=== PATIENT | male | born 1980 | race Two or more races ===

== ENCOUNTER 2018-01-14 11:01 | Emergency (ER) | payer SELFPAY ==
[~2018-01-14] VITALS: Ht 177.8 cm; Wt 62.9 kg
[2018-01-14] MEDS ORDERED: SODIUM CHLORIDE 0.9% 1,000 ML IV ONE (12:01)
[2018-01-14] MEDS ORDERED: ZIPRASIDONE 20 MG INJ IM ONE ×2 (12:19→12:30)
[2018-01-14] MEDS ORDERED: MAALOX/HYOSCYAMINE/LIDOCAINE 45 ML BTL ONE (12:19)
[2018-01-14] MEDS ORDERED: ONDANSETRON ODT 4 MG ONE (12:19)
[2018-01-14] MEDS ORDERED: SODIUM CHLORIDE FLUSH 10ML SYR IVF ONE (12:30)
[2018-01-14] MEDS ORDERED: SODIUM CHLORIDE 0.9% 1,000ML IVBOLUS ONE (12:30)
[2018-01-14] MEDS ORDERED: ONDANSETRON ODT 4 MG PO ONE (12:30)
[2018-01-14] MEDS ORDERED: CAPSAICIN CRM 0.075%, 60GM TP ONE (12:30)
[2018-01-14] MEDS ORDERED: MAALOX/HYOSCYAMINE/LIDOCAINE 45 ML BTL PO ONE (12:30)
[2018-01-14] MEDS ORDERED: CAPSAICIN CRM 0.025%, 60GM TP ONE (13:30)
[2018-01-14 13:35] VITALS: BP 123/78
== END 2018-01-14 13:43 ==
LOC: ED 13:40 → EDUNIT# 13:40 → ED 13:43
DX: R10.12 Left upper quadrant pain (principal)
CPT/HCPCS: 36415; 80053; 85025; 96360; 96361; 96372; 99285; J3486; J7030; Q0162

== ENCOUNTER 2018-01-14 13:36 | Emergency (ER) | payer SELFPAY ==
[~2018-01-14] VITALS: Ht 177.8 cm; Wt 62.9 kg
[2018-01-14] MEDS ORDERED: SODIUM CHLORIDE 0.9% 1,000 ML IV ONE (14:31)
[2018-01-14] MEDS ORDERED: SODIUM CHLORIDE 0.9% 1,000ML IVBOLUS ONE (15:00)
[2018-01-14] MEDS ORDERED: SODIUM CHLORIDE FLUSH 10ML SYR IVF ONE (15:00)
[2018-01-14] MEDS ORDERED: PLEASE ENTER ALLERGIES MC SCH (15:00)
[2018-01-14] MEDS ORDERED: ZIPRASIDONE 20 MG INJ IM ONE (15:00)
[2018-01-14] MEDS ORDERED: ONDANSETRON ODT 4 MG PO ONE (15:00)
[2018-01-14] MEDS ORDERED: MAALOX/HYOSCYAMINE/LIDOCAINE 45 ML BTL PO ONE ×2 (15:00)
[2018-01-14] MEDS ORDERED: CAPSAICIN CRM 0.075%, 60GM TP ONE (15:00)
[2018-01-14 15:41] LABS: MICROSCOPIC NOT IND
[2018-01-14 15:42] VITALS: BP 122/70
[2018-01-14 15:42] LABS: ALANINE AMINOTRANSFERASE 23 U/L (12-78); ALKALINE PHOSPHATASE 75 U/L (45-117); ANION GAP 11 mmol/L (5-15); BILIRUBIN,TOTAL 0.5 mg/dL (0.2-1.0); CALCIUM 9.4 mg/dL (8.5-10.1); CHLORIDE 111 mmol/L (98-107); CREATININE 1.01 mg/dL (0.7-1.3)
[2018-01-14 15:43] LABS: ALBUMIN 4.7 g/dL (3.4-5.0); TOTAL PROTEIN 8.3 g/dL (6.4-8.2)
[2018-01-14 15:44] LABS: CULTURE INDICATED? NO
[2018-01-14 15:45] LABS: BASOPHILS % (AUTO) 1 % (0-1); EOSINOPHILS % (AUTO) 0 % (1-7); LYMPHOCYTES # (AUTO) 1.46 x10^3/uL (1-3.4); LYMPHOCYTES % (AUTO) 12 % (22-44); MEAN CORPUSCULAR HEMOGLOBIN 31.5 pg (27.5-34.5); MEAN CORPUSCULAR HGB CONC 34.3 g/dL (33.2-36.2); MEAN CORPUSCULAR VOLUME 91.7 fL (81-97); MEAN PLATELET VOLUME 8.9 fL (7.4-10.4); MONOCYTES # (AUTO) 0.72 x10^3/uL (0.2-0.8); MONOCYTES % (AUTO) 6 % (2-9); NEUTROPHILS # (AUTO) 10.19 x10^3/uL (1.8-6.8); NEUTROPHILS % (AUTO) 82 % (42-75); PLATELET COUNT 321 x10^3/uL (130-400); RED BLOOD COUNT 5.26 x10^6/uL (4.38-5.82); RED CELL DISTRIBUTION WIDTH 13.4 % (9.4-14.8)
[2018-01-14 15:46] LABS: BASOPHILS # (AUTO) 0.07 x10^3/uL (0-0.1); EOSINOPHILS # (AUTO) 0.01 x10^3/uL (0-0.4); MD NO
== END 2018-01-14 15:37 | disposition home or self-care (01) ==
LOC: ED 15:02
DX: G43.A1 Cyclical vomiting, in migraine, intractable (principal)
CPT/HCPCS: 36415; 74021; 80053; 81003; 83690; 85025; 96360; 96361; 96372; 99285; J3486; J7030; Q0162

== ENCOUNTER 2021-04-10 11:19 | Emergency (ER) | payer SELFPAY ==
[~2021-04-10] VITALS: Ht 177.8 cm; Wt 68.0 kg
--- NOTE | 2021-04-10 11:23 | NUR ---
PT BROUGHT IN BY [facility]BI WITH CHIEF COMPLAINT OF ABD PAIN STARTING THIS AM AT 6AM. [facility] ADMINISTERED 12.5 PHENERGEN & 2 MG MORPHINE
[2021-04-10] MEDS ORDERED: KETAMINE 10 MG/ML, 20ML IV ONE (11:25)
[2021-04-10] MEDS ORDERED: ONDANSETRON 2MG/ML, 2ML IVPush ONE (11:30)
[2021-04-10] MEDS ORDERED: SODIUM CHLORIDE 0.9% 1,000ML IVBOLUS ONE (11:30)
[2021-04-10] MEDS ORDERED: SODIUM CHLORIDE FLUSH 10ML SYR IVF ONE (11:30)
[2021-04-10] MEDS ORDERED: ONDANSETRON 2MG/ML, 2ML ONE (11:33)
[2021-04-10] MEDS ORDERED: KETAMINE 10 MG/ML, 20ML ONE (11:33)
--- NOTE | 2021-04-10 11:41 | NUR ---
PT MEDICATED PER DEC. BREAK RN UPDATED.
[2021-04-10 11:51] LABS: BASOPHILS % (AUTO) 0 % (0-1); EOSINOPHILS % (AUTO) 0 % (1-7); LYMPHOCYTES % (AUTO) 8 % (22-44); MEAN CORPUSCULAR HEMOGLOBIN 31.3 pg (27.5-34.5); MEAN CORPUSCULAR HGB CONC 34.2 g/dL (33.2-36.2); MEAN PLATELET VOLUME 9.3 fL (7.4-10.4); MONOCYTES % (AUTO) 5 % (2-9); NEUTROPHILS % (AUTO) 87 % (42-75); PLATELET COUNT 302 x10^3/uL (130-400); RED BLOOD COUNT 5.21 x10^6/uL (4.38-5.82); RED CELL DISTRIBUTION WIDTH 13.6 % (9.4-14.8)
[2021-04-10] MEDS ORDERED: ZIPRASIDONE 20 MG INJ IM ONE ×2 (11:57→12:00)
[2021-04-10 12:02] LABS: ALANINE AMINOTRANSFERASE 25 U/L (12-78); ALBUMIN 4.4 g/dL (3.4-5.0); ANION GAP 11 mmol/L (5-15); CALCIUM 9.7 mg/dL (8.5-10.1); CHLORIDE 111 mmol/L (98-107); CREATININE 0.89 mg/dL (0.7-1.3)
[2021-04-10 12:05] LABS: ALKALINE PHOSPHATASE 75 U/L (45-117); BILIRUBIN,TOTAL 0.6 mg/dL (0.2-1.0)
--- NOTE | 2021-04-10 12:29 | NUR ---
UPDATE RECEIVED FROM BREAK RN. PT IS STILL GRIPPING THE BEDRAILS AND CRYING OUT IN PAIN. WENT INTO PT ROOM AND ASKED IF HE THINKS HE WOULD BE ABLE TO LAY IN CT AFTER MEDS AND HE STATES "I DON'T KNOW" HE DID WORK ON BREATHING, BUT CONTINUED TO GRASP SIDE RAIL AND THEN YELLING OUT AGAIN. VSS.
--- NOTE | 2021-04-10 12:44 | NUR ---
PT TO CT
[2021-04-10] MEDS ORDERED: OMNIPAQUE 350 MG/ML, 100ML BOTTLE ONE (12:45)
--- NOTE | 2021-04-10 13:13 | NUR ---
PT LAYING IN GURNEY EYES CLOSED, VSS, NADN.
[2021-04-10 13:57] VITALS: BP 137/73
--- NOTE | 2021-04-10 13:58 | NUR ---
pt sleeping in room on [facility]. woke pt up to request urine from him. Pt able to provide sample, which is collected and walked down to lab.
[2021-04-10 14:12] LABS: MICROSCOPIC NOT IND
--- NOTE | 2021-04-10 14:30 | NUR ---
PT SLEEPING, SIDE RAIL UPX2. NADN. CALL LIGHT W/IN REACH.
[2021-04-10 14:32] LABS: AMPHETAMINE SCREEN, URINE Negative (Negative); BARBITURATE SCREEN, URINE Negative (Negative); BENZODIAZEPINE SCREEN, URINE Negative (Negative); CANNABINOID SCREEN, URINE Positive (Negative); COCAINE SCREEN, URINE Negative (Negative); METHADONE SCREEN, URINE Negative (Negative); OPIATE SCREEN, URINE Positive (Negative)
--- NOTE | 2021-04-10 14:45 | NUR ---
SBAR REPORT GIVEN
== END 2021-04-10 16:23 | disposition home or self-care (01) ==
LOC: ED 14:54
DX: R10.32 Left lower quadrant pain (principal); R00.0 Tachycardia, unspecified
CPT/HCPCS: 36415; 74177; 80053; 80307; 81003; 83605; 83690; 85025; 93005; 96372; 96374; 96375; 99285; J2405; J3486; J7030; Q9967